=== PATIENT | female | born 1945 | race Caucasian/White ===

== ENCOUNTER 2021-09-10 20:04 | Observation (INO) | payer MEDICARE, OTHER ==
[2021-09-10] MEDS ORDERED: Sodium Chloride 0.9% 10 ML Syringe FLUSH PRN (20:26)
[2021-09-10] MEDS ORDERED: Sodium Chloride 0.9% 1,000 ML IV SCH (20:30)
[2021-09-10] MEDS ORDERED: LORazepam 0.5 MG Tab PO ONE (20:51)
[2021-09-10 21:38] LABS: CHLORIDE,CL 102 mmol/L (98-107); SODIUM,NA 139 mmol/L (136-145)
[2021-09-10 21:39] LABS: ANION GAP 25.6 mmol/L (5-15)
[2021-09-10 21:41] LABS: PTT,PARTIAL THROMBOPLSTIN TIME 27.1 SEC (25.6-32.8)
--- NOTE | 2021-09-10 23:13 | EDM.PDOC ---
ED HPI GENERAL MEDICAL PROBLEM - General Stated Complaint: LIGHTHEADED;BP LOW Time Seen by Provider: 09/10/21 20:04 Source of Information: Reports: Patient, EMS History Limitations: Reports: No Limitations - History of Present Illness INITIAL COMMENTS - FREE TEXT/NARRATIVE: Pt. had a near syncopal episode this evening. She live in [place] and is in [place] for her brother's . She states that she became diaphoretic, lightheaded and felt faint. She was helped to the floor, and EMS was summoned. Pt. has a history of type 2 DM. EMS checked her blood sugar and it was normal. Pt. was hypotensive initially, with BP in the 50s and then 70s systolic. She was normotensive by the time she arrived in ER. Pt. denies any numbness/tingling in extremities, no problems with speech, headache, facial droop. No history of previous stroke. She denies any chest pain, shortness of breath, nausea, or vomiting. She states that she does feel a bit lightheaded when she stands. Her only other complaint is of anxiety, which she states she has chronic problems with. Pt. has a history of concentric ventricular hypertrophy, microvascular CAD, moderate diastolic heart failure, tricuspid and mitral regurgitation. EF on echo in 2019 was 55-60%. Onset: Today Location: Reports: Chest, Generalized - Related Data Allergies Allergy/AdvReac Type Severity Reaction Status Date / Time codeine Allergy Other Verified 09/10/21 20:24 Penicillins Allergy Other Verified 09/10/21 20:25 Home Meds: Home Meds . [Unable to Verify Home Med List] 09/10/21 [History] Past Medical History Cardiovascular History: Reports: Heart Failure, Hypertension, Other (See Below) Other Cardiovascular History: Mitral valve annular calcification, subcortical microvascular ischemic occlusive disease Respiratory History: Reports: Other (See Below) Other Respiratory History: Allergic rhinitis Gastrointestinal History: Reports: GERD, Other (See Below) Other Gastrointestinal History: Gastric ulcer, B12 deficiency Genitourinary History: Reports: Other (See Below) Other Genitourinary History: Stage 3a chronic kidney disease Musculoskeletal History: Reports: Arthritis, Osteoporosis, Other (See Below) Other Musculoskeletal History: Osteopenia, acquired torticollis, disc disease, degenerative lumbar disease Neurological History: Reports: Other (See Below) Other Neuro History: Syncopal episodes, benign head tremor Psychiatric History: Reports: Anxiety, Depression Endocrine/Metabolic History: Reports: Diabetes, Type II, Hypothyroidism, Other (See Below) Other Endocrine/Metabolic History: Dyslipidemia Hematologic History: Reports: Other (See Below) Other Hematologic History: Iron deficiency anemia Oncologic (Cancer) History: Reports: Breast - Past Surgical History HEENT Surgical History: Reports: None Cardiovascular Surgical History: Reports: None Respiratory Surgical History: Reports: None GI Surgical History: Reports: Other (See Below) Other GI Surgeries/Procedures: Hx of gastric bypass Female Surgical History: Reports: Other (See Below) Other Female Surgeries/Procedures: Fibrocystic breast, malignant neoplasm of female breast, hx of breast cancer ED ROS GENERAL - Review of Systems Review Of Systems: See Below Constitutional: Reports: No Symptoms HEENT: Reports: No Symptoms Respiratory: Reports: No Symptoms Cardiovascular: Reports: No Symptoms Endocrine: Reports: No Symptoms GI/Abdominal: Reports: No Symptoms : Reports: No Symptoms Musculoskeletal: Reports: No Symptoms Skin: Reports: No Symptoms Neurological: Reports: No Symptoms Psychiatric: Reports: No Symptoms Hematologic/Lymphatic: Reports: No Symptoms Immunologic: Reports: No Symptoms ED EXAM, GENERAL - Physical Exam Exam: See Below General Appearance: Alert, WD/WN, Anxious, Mild Distress Throat/Mouth: Normal Inspection, Normal Lips, Normal Oropharynx, Normal Voice Head: Atraumatic, Normocephalic Neck: Normal Inspection, Supple, Non-Tender, Full Range of Motion Respiratory/Chest: No Respiratory Distress, Lungs Clear, Normal Breath Sounds, No Accessory Muscle Use, Chest Non-Tender Cardiovascular: Normal Peripheral Pulses, Regular Rate, Rhythm, No Edema, No JVD, No Murmur, No Rub Peripheral Pulses: 4+: Radial (R) GI/Abdominal: Soft, Non-Tender, No Distention, No Mass Extremities: Normal Inspection, Normal Range of Motion, No Pedal Edema, Normal Capillary Refill Neurological: Alert, Oriented, CN II-XII Intact, Normal Cognition, Normal Reflexes, No Motor/Sensory Deficits Psychiatric: Normal Affect, Normal Mood #1 Interpretation Rhythm: NSR [place]: Normal P-Wave: Present QRS: Normal ST-T: Normal QT: Normal Course - Orders/Labs/Meds Orders: Active Orders 24 hr Category Date Time Status EKG Documentation Completion [RC] STAT Care 09/10/21 20:26 Active Chest 1V Frontal [CR] Stat Exams 09/10/21 20:33 Ordered Sodium Chloride 0.9% [Normal Saline] 1,000 ml Med 09/10/21 20:30 Active IV ASDIRECTED Sodium Chloride 0.9% [Saline Flush] Med 09/10/21 20:26 Active 10 ml FLUSH ASDIRECTED PRN Peripheral IV Insertion Adult [OM.PC] Routine Oth 09/10/21 20:26 Ordered Medication Orders Sodium Chloride (Normal Saline) 1,000 mls @ 500 mls/hr IV ASDIRECTED BUTCH Sodium Chloride (Sodium Chloride 0.9% 10 Ml Syringe) 10 ml FLUSH ASDIRECTED PRN PRN Reason: Keep Vein Open Labs: Laboratory Tests 09/10/21 09/10/21 09/10/21 Range/Units 21:00 21:02 21:02 WBC 11.2 H (4.0-10.0) x10^3/uL RBC 3.28 L (4.00-5.50) x10^6/uL Hgb 9.9 L (12.0-16.0) g/dL Hct 29.9 L (33.0-47.0) % MCV 91.2 (78.0-93.0) fL MCH 30.2 (26.0-32.0) pg MCHC 33.1 (32.0-36.0) g/dL RDW Coeff of Chasity 14.0 (10.0-15.0) % Plt Count 319 (130-400) x10^3/uL Immature Gran % (Auto) 0.30 (0.00-0.43) % Neut % (Auto) 80.2 H (50.0-80.0) % Lymph % (Auto) 11.2 L (25.0-50.0) % [place] % (Auto) 6.2 (2.0-11.0) % Eos % (Auto) 1.7 (0.0-4.0) % Baso % (Auto) 0.4 (0.2-1.2) % Neut # (Auto) 9.0 H (1.8-7.7) x10^3/uL Lymph # (Auto) 1.3 (1.0-4.8) x10^3/uL [place] # (Auto) 0.7 (0.0-0.8) x10^3/uL Eos # (Auto) 0.2 (0.0-0.5) x10^3/uL Baso # (Auto) 0.1 (0.0-0.2) x10^3/uL Immature Gran # (Auto) 0.03 (0.00-0.07) x10^3/uL PT 9.9 (9.9-12.5) SEC INR 0.9 L (2.0-3.5) APTT 27.1 (25.6-32.8) SEC D-Dimer, Quantitative 0.48 (<=0.58) mg/LFEU Sodium (136-145) mmol/L Potassium (3.5-5.1) mmol/L Chloride (98-107) mmol/L Carbon Dioxide (21-32) mmol/L Anion Gap (5-15) mmol/L BUN (7-18) mg/dL Creatinine (0.55-1.02) mg/dL Est Cr Clr Drug Dosing Estimated GFR (MDRD) Glucose (70-99) mg/dL Calcium (8.5-10.1) mg/dL Corrected Calcium (8.5-10.1) mg/dL Phosphorus (2.6-4.7) mg/dL Magnesium (1.8-2.4) mg/dL Total Bilirubin (0.2-1.0) mg/dL AST (15-37) U/L ALT (14-59) U/L Alkaline Phosphatase (46-116) U/L Troponin I High Sens (<=51) ng/L C-Reactive Protein (<=0.9) mg/dL NT-Pro-B Natriuret Pep (<=450) pg/mL Total Protein (6.4-8.2) g/dL Albumin (3.4-5.0) g/dL Globulin Albumin/Globulin Ratio TSH, Ultra Sensitive (0.358-3.74) uIU/mL Urine Color (YELLOW) Urine Appearance (CLEAR) Urine pH (5.0-8.0) Ur Specific [place] Urine Protein (NEGATIVE) mg/dL Urine Glucose (UA) (NEGATIVE) mg/dL Urine Ketones (NEGATIVE) mg/dL Urine Occult Blood (NEGATIVE) Urine Nitrite (NEGATIVE) Urine Bilirubin (NEGATIVE) Urine Urobilinogen (0.2) EU/dL Ur Leukocyte Esterase (NEGATIVE) Ethyl Alcohol (0-3) mg/dL SARS CoV-2 RNA Rapid FRANKLYN Negative (NEGATIVE) 09/10/21 09/10/21 Range/Units 21:02 21:10 WBC (4.0-10.0) x10^3/uL RBC (4.00-5.50) x10^6/uL Hgb (12.0-16.0) g/dL Hct (33.0-47.0) % MCV (78.0-93.0) fL MCH (26.0-32.0) pg MCHC (32.0-36.0) g/dL RDW Coeff of Chasity (10.0-15.0) % Plt Count (130-400) x10^3/uL Immature Gran % (Auto) (0.00-0.43) % Neut % (Auto) (50.0-80.0) % Lymph % (Auto) (25.0-50.0) % [place] % (Auto) (2.0-11.0) % Eos % (Auto) (0.0-4.0) % Baso % (Auto) (0.2-1.2) % Neut # (Auto) (1.8-7.7) x10^3/uL Lymph # (Auto) (1.0-4.8) x10^3/uL [place] # (Auto) (0.0-0.8) x10^3/uL Eos # (Auto) (0.0-0.5) x10^3/uL Baso # (Auto) (0.0-0.2) x10^3/uL Immature Gran # (Auto) (0.00-0.07) x10^3/uL PT (9.9-12.5) SEC INR (2.0-3.5) APTT (25.6-32.8) SEC D-Dimer, Quantitative (<=0.58) mg/LFEU Sodium 139 (136-145) mmol/L Potassium 3.6 (3.5-5.1) mmol/L Chloride 102 (98-107) mmol/L Carbon Dioxide 15 L (21-32) mmol/L Anion Gap 25.6 H (5-15) mmol/L BUN 15 (7-18) mg/dL Creatinine 1.1 H (0.55-1.02) mg/dL Est Cr Clr Drug Dosing TNP Estimated GFR (MDRD) 48 Glucose 79 (70-99) mg/dL Calcium 8.1 L (8.5-10.1) mg/dL Corrected Calcium 8.3 L (8.5-10.1) mg/dL Phosphorus 3.3 (2.6-4.7) mg/dL Magnesium 1.9 (1.8-2.4) mg/dL Total Bilirubin 0.2 (0.2-1.0) mg/dL AST 17 (15-37) U/L ALT 23 (14-59) U/L Alkaline Phosphatase 56 (46-116) U/L Troponin I High Sens 19 (<=51) ng/L C-Reactive Protein < 0.2 (<=0.9) mg/dL NT-Pro-B Natriuret Pep 3601 H (<=450) pg/mL Total Protein 6.6 (6.4-8.2) g/dL Albumin 3.7 (3.4-5.0) g/dL Globulin 2.9 Albumin/Globulin Ratio 1.28 TSH, Ultra Sensitive 3.639 (0.358-3.74) uIU/mL Urine Color Yellow (YELLOW) Urine Appearance Clear (CLEAR) Urine pH 5.5 (5.0-8.0) Ur Specific [place] 1.010 Urine Protein Negative (NEGATIVE) mg/dL Urine Glucose (UA) Negative (NEGATIVE) mg/dL Urine Ketones Trace H (NEGATIVE) mg/dL Urine Occult Blood Negative (NEGATIVE) Urine Nitrite Negative (NEGATIVE) Urine Bilirubin Negative (NEGATIVE) Urine Urobilinogen 0.2 (0.2) EU/dL Ur Leukocyte Esterase Negative (NEGATIVE) Ethyl Alcohol 13 H (0-3) mg/dL SARS CoV-2 RNA Rapid FRANKLYN (NEGATIVE) Meds: Medications Generic Name Dose Route Start Last Admin Trade Name Freq PRN Reason Stop Dose Admin Sodium Chloride 1,000 mls @ 500 mls/hr 09/10/21 20:30 Normal Saline IV ASDIRECTED BUTCH Sodium Chloride 10 ml 09/10/21 20:26 Sodium Chloride 0.9% 10 Ml Syringe FLUSH ASDIRECTED PRN Keep Vein Open Discontinued Medications Generic Name Dose Route Start Last Admin Trade Name Freq PRN Reason Stop Dose Admin Lorazepam 0.5 mg 09/10/21 20:51 09/10/21 21:29 Lorazepam 0.5 Mg Tab PO 09/10/21 20:52 0.5 mg ONETIME ONE Administration - Radiology Interpretation Free Text/Narrative:: mild CHF Departure - Departure Time of Disposition: 22:00 Disposition: Refer to Observation Clinical Impression: CHF (congestive heart failure), Near syncope - Discharge Information - Problem List Review Problem List Initiated/Reviewed/Updated: Yes - My Orders Last 24 Hours: My Active Orders 09/10/21 20:26 EKG Documentation Completion [RC] STAT Sodium Chloride 0.9% [Saline Flush] 10 ml FLUSH ASDIRECTED PRN Peripheral IV Insertion Adult [OM.PC] Routine 09/10/21 20:30 Sodium Chloride 0.9% [Normal Saline] 1,000 ml IV ASDIRECTED 09/10/21 20:33 Chest 1V Frontal [CR] Stat - Assessment/Plan Last 24 Hours: My Active Orders 09/10/21 20:26 EKG Documentation Completion [RC] STAT Sodium Chloride 0.9% [Saline Flush] 10 ml FLUSH ASDIRECTED PRN Peripheral IV Insertion Adult [OM.PC] Routine 09/10/21 20:30 Sodium Chloride 0.9% [Normal Saline] 1,000 ml IV ASDIRECTED 09/10/21 20:33 Chest 1V Frontal [CR] Stat Plan: Pt. will be admitted observation. I do not find a recent cardiology note in the patient's chart. She denied any chest pain or shortness of breath during her stay in ER. Will trend troponin. Initial EKG was negative for acute ischemic dharmesh nges. Pt. is a code 1. Discussed finding with patient's niece. She will see to it that her is cared for, as patient is his primary carer.
[2021-09-11] MEDS ORDERED: Citalopram 20 MG Tab PO SCH (10:00)
[2021-09-11] MEDS ORDERED: metFORMIN 500 MG Tab PO SCH (10:15)
[2021-09-11] MEDS ORDERED: Levothyroxine 50 MCG Tab PO SCH (10:15)
[2021-09-11] MEDS: Gabapentin 400 MG Cap PO SCH ×2 (10:17→14:49)
[2021-09-11] MEDS ORDERED: Acetaminophen 325 MG Tab PO PRN (10:39)
--- NOTE | 2021-09-11 14:19 | PCM.DCSUM1 ---
Discharge Summary - Hospital Course Free Text/Narrative:: Patient was placed in observation overnight secondary to her near syncopal episode. She had trending troponins which were negative. At time of discharge patient was alert and oriented x4 sitting up in bed watching TV and states she has no complaints at this time wants to her and get home for the [employer] game. She states she ate breakfast and had dinner today with no issues she has been up walking to the bathroom multiple times with no issues. She has no other complaints at this time her and her are okay with treatment disposition home Brief History: Patient was placed in observation for near syncopal episode Diagnosis: Stroke: No Modified Oracio Scale: No Symptoms at All Modified Oracio Scale Score: 0 - Discharge Data Discharge Date: 09/11/21 Discharge Disposition: Home, Self-Care 01 Preliminary Cause of *Q: Other_Special Instruction (no ) Event(s) Leading to Patient's *Q: no Condition: Stable - Referral to Home Health Primary Care Physician: PCP Not In Area - Patient Instructions Diet: Heart Healthy Diet Diet, Other: I recommend a low-salt diet limit fluids to 1500 mL a day Feeding Instructions: Normal diet as tolerated Driving: May Drive Today Showering/Bathing: May Shower - Discharge Plan *PRESCRIPTION DRUG MONITORING PROGRAM REVIEWED*: No *COPY OF PRESCRIPTION DRUG MONITORING REPORT IN PATIENT [place]: No Home Medications: Home Meds Citalopram [Citalopram HBr] 10 mg PO BEDTIME 09/11/21 [History] Citalopram [Citalopram HBr] 20 mg PO DAILY 09/11/21 [History] Famotidine [Pepcid] 20 mg PO BEDTIME 09/11/21 [History] Fluticasone Propionate [Flonase] 1 spray NASBOTH DAILY 09/11/21 [History] Gabapentin [Neurontin] 400 mg PO QID 09/11/21 [History] Levothyroxine [Synthroid] 50 mcg PO DAILY 09/11/21 [History] Simvastatin [Zocor] 20 mg PO BEDTIME 09/11/21 [History] metFORMIN HCl [Metformin HCl] 1,000 mg PO BIDMEALS 09/11/21 [History] Patient Handouts: Near-Syncope, Heart Failure, Diagnosis, [id number] Forms: ED Department Discharge Referrals: PCP,Not In Area [Primary Care Provider] - - Discharge Summary/Plan Comment DC Time >30 min.: No Total # of Minutes for Discharge Time: 20 mins - General Info Date of Service: 09/11/21 Functional Status: Reports: Tolerating Diet, Ambulating, Urinating - Review of Systems General: Reports: No Symptoms HEENT: Reports: No Symptoms Pulmonary: Reports: No Symptoms Cardiovascular: Reports: No Symptoms Gastrointestinal: Reports: No Symptoms Genitourinary: Reports: No Symptoms Musculoskeletal: Reports: No Symptoms Skin: Reports: No Symptoms Neurological: Reports: No Symptoms. Denies: Confusion, Dizziness, Headache, Numbness, Paresthesia, Pre-Existing Deficit, Syncope, Tingling, Tremors, Trouble Speaking, Difficulty Walking, Weakness Psychiatric: Reports: No Symptoms - Patient Data Vitals - Most Recent: Last Vital Signs Temp 36.7 C 09/11/21 10:00 Pulse 61 09/11/21 10:00 Resp 20 09/11/21 10:00 BP 144/89 H 09/11/21 10:00 Pulse Ox 100 09/11/21 10:00 Weight - Most Recent: 68.674 kg I&O - Last 24 hours: Intake & Output 09/10/21 09/11/21 09/11/21 22:59 06:59 14:59 Intake Total 1000 425 270 Balance 1000 425 270 Lab Results - Last 24 hrs: Laboratory Results - last 24 hr 09/10/21 09/10/21 09/10/21 Range/Units 21:00 21:02 21:02 WBC 11.2 H (4.0-10.0) x10^3/uL RBC 3.28 L (4.00-5.50) x10^6/uL Hgb 9.9 L (12.0-16.0) g/dL Hct 29.9 L (33.0-47.0) % MCV 91.2 (78.0-93.0) fL MCH 30.2 (26.0-32.0) pg MCHC 33.1 (32.0-36.0) g/dL RDW Coeff of Chasity 14.0 (10.0-15.0) % Plt Count 319 (130-400) x10^3/uL Immature Gran % (Auto) 0.30 (0.00-0.43) % Neut % (Auto) 80.2 H (50.0-80.0) % Lymph % (Auto) 11.2 L (25.0-50.0) % [place] % (Auto) 6.2 (2.0-11.0) % Eos % (Auto) 1.7 (0.0-4.0) % Baso % (Auto) 0.4 (0.2-1.2) % Neut # (Auto) 9.0 H (1.8-7.7) x10^3/uL Lymph # (Auto) 1.3 (1.0-4.8) x10^3/uL [place] # (Auto) 0.7 (0.0-0.8) x10^3/uL Eos # (Auto) 0.2 (0.0-0.5) x10^3/uL Baso # (Auto) 0.1 (0.0-0.2) x10^3/uL Immature Gran # (Auto) 0.03 (0.00-0.07) x10^3/uL PT 9.9 (9.9-12.5) SEC INR 0.9 L (2.0-3.5) APTT 27.1 (25.6-32.8) SEC D-Dimer, Quantitative 0.48 (<=0.58) mg/LFEU Sodium (136-145) mmol/L Potassium (3.5-5.1) mmol/L Chloride (98-107) mmol/L Carbon Dioxide (21-32) mmol/L Anion Gap (5-15) mmol/L BUN (7-18) mg/dL Creatinine (0.55-1.02) mg/dL Est Cr Clr Drug Dosing Estimated GFR (MDRD) Glucose (70-99) mg/dL Calcium (8.5-10.1) mg/dL Corrected Calcium (8.5-10.1) mg/dL Phosphorus (2.6-4.7) mg/dL Magnesium (1.8-2.4) mg/dL Total Bilirubin (0.2-1.0) mg/dL AST (15-37) U/L ALT (14-59) U/L Alkaline Phosphatase (46-116) U/L Troponin I High Sens (<=51) ng/L C-Reactive Protein (<=0.9) mg/dL NT-Pro-B Natriuret Pep (<=450) pg/mL Total Protein (6.4-8.2) g/dL Albumin (3.4-5.0) g/dL Globulin Albumin/Globulin Ratio TSH, Ultra Sensitive (0.358-3.74) uIU/mL Urine Color (YELLOW) Urine Appearance (CLEAR) Urine pH (5.0-8.0) Ur Specific [place] Urine Protein (NEGATIVE) mg/dL Urine Glucose (UA) (NEGATIVE) mg/dL Urine Ketones (NEGATIVE) mg/dL Urine Occult Blood (NEGATIVE) Urine Nitrite (NEGATIVE) Urine Bilirubin (NEGATIVE) Urine Urobilinogen (0.2) EU/dL Ur Leukocyte Esterase (NEGATIVE) Ethyl Alcohol (0-3) mg/dL SARS CoV-2 RNA Rapid FRANKLYN Negative (NEGATIVE) 09/10/21 09/10/21 09/11/21 Range/Units 21:02 21:10 08:17 WBC (4.0-10.0) x10^3/uL RBC (4.00-5.50) x10^6/uL Hgb (12.0-16.0) g/dL Hct (33.0-47.0) % MCV (78.0-93.0) fL MCH (26.0-32.0) pg MCHC (32.0-36.0) g/dL RDW Coeff of Chasity (10.0-15.0) % Plt Count (130-400) x10^3/uL Immature Gran % (Auto) (0.00-0.43) % Neut % (Auto) (50.0-80.0) % Lymph % (Auto) (25.0-50.0) % [place] % (Auto) (2.0-11.0) % Eos % (Auto) (0.0-4.0) % Baso % (Auto) (0.2-1.2) % Neut # (Auto) (1.8-7.7) x10^3/uL Lymph # (Auto) (1.0-4.8) x10^3/uL [place] # (Auto) (0.0-0.8) x10^3/uL Eos # (Auto) (0.0-0.5) x10^3/uL Baso # (Auto) (0.0-0.2) x10^3/uL Immature Gran # (Auto) (0.00-0.07) x10^3/uL PT (9.9-12.5) SEC INR (2.0-3.5) APTT (25.6-32.8) SEC D-Dimer, Quantitative (<=0.58) mg/LFEU Sodium 139 (136-145) mmol/L Potassium 3.6 (3.5-5.1) mmol/L Chloride 102 (98-107) mmol/L Carbon Dioxide 15 L (21-32) mmol/L Anion Gap 25.6 H (5-15) mmol/L BUN 15 (7-18) mg/dL Creatinine 1.1 H (0.55-1.02) mg/dL Est Cr Clr Drug Dosing TNP Estimated GFR (MDRD) 48 Glucose 79 (70-99) mg/dL Calcium 8.1 L (8.5-10.1) mg/dL Corrected Calcium 8.3 L (8.5-10.1) mg/dL Phosphorus 3.3 (2.6-4.7) mg/dL Magnesium 1.9 (1.8-2.4) mg/dL Total Bilirubin 0.2 (0.2-1.0) mg/dL AST 17 (15-37) U/L ALT 23 (14-59) U/L Alkaline Phosphatase 56 (46-116) U/L Troponin I High Sens 19 20 (<=51) ng/L C-Reactive Protein < 0.2 (<=0.9) mg/dL NT-Pro-B Natriuret Pep 3601 H (<=450) pg/mL Total Protein 6.6 (6.4-8.2) g/dL Albumin 3.7 (3.4-5.0) g/dL Globulin 2.9 Albumin/Globulin Ratio 1.28 TSH, Ultra Sensitive 3.639 (0.358-3.74) uIU/mL Urine Color Yellow (YELLOW) Urine Appearance Clear (CLEAR) Urine pH 5.5 (5.0-8.0) Ur Specific [place] 1.010 Urine Protein Negative (NEGATIVE) mg/dL Urine Glucose (UA) Negative (NEGATIVE) mg/dL Urine Ketones Trace H (NEGATIVE) mg/dL Urine Occult Blood Negative (NEGATIVE) Urine Nitrite Negative (NEGATIVE) Urine Bilirubin Negative (NEGATIVE) Urine Urobilinogen 0.2 (0.2) EU/dL Ur Leukocyte Esterase Negative (NEGATIVE) Ethyl Alcohol 13 H (0-3) mg/dL SARS CoV-2 RNA Rapid FRANKLYN (NEGATIVE) Med Orders - Current: Current Medications Acetaminophen (Acetaminophen 325 Mg Tab) 650 mg PO Q6H PRN PRN Reason: Pain Last Admin: 09/11/21 12:07 Dose: 650 mg Documented by: Citalopram Hydrobromide (Citalopram 20 Mg Tab) 20 mg PO DAILY [facility] Last Admin: 09/11/21 10:17 Dose: 20 mg Documented by: Citalopram Hydrobromide (Citalopram 10 Mg Tab) 10 mg PO BEDTIME BUTCH Famotidine (Famotidine 20 Mg Tab) 20 mg PO BEDTIME BUTCH Gabapentin (Gabapentin 400 Mg Cap) 400 mg PO QID [facility] Last Admin: 09/11/21 10:17 Dose: 400 mg Documented by: Levothyroxine Sodium (Levothyroxine 50 Mcg Tab) 50 mcg PO ACBREAKFAST [facility] Last Admin: 09/11/21 10:18 Dose: 50 mcg Documented by: Metformin HCl (Metformin 500 Mg Tab) 1,000 mg PO BIDMEALS [facility] Last Admin: 09/11/21 10:19 Dose: 1,000 mg Documented by: Non-Formulary Medication (Fluticasone Propionate [Flonase]) 1 spray NASBOTH DAILY [facility] Simvastatin (Simvastatin 20 Mg Tab) 20 mg PO BEDTIME [facility] Sodium Chloride (Sodium Chloride 0.9% 10 Ml Syringe) 10 ml FLUSH ASDIRECTED PRN PRN Reason: Keep Vein Open Last Admin: 09/11/21 10:19 Dose: 10 ml Documented by: Discontinued Medications Sodium Chloride (Normal Saline) 1,000 mls @ 500 mls/hr IV ASDIRECTED [facility] Last Admin: 09/10/21 23:51 Dose: 500 mls/hr Documented by: Lorazepam (Lorazepam 0.5 Mg Tab) 0.5 mg PO ONETIME ONE Stop: 09/10/21 20:52 Last Admin: 09/10/21 21:29 Dose: 0.5 mg Documented by: - Exam General: Reports: Alert, Oriented HEENT: Reports: Pupils Equal, Pupils Reactive, EOMI, Mucous Membr. Moist/[place] Neck: Reports: Supple Lungs: Reports: Clear to Auscultation, Normal Respiratory Effort Cardiovascular: Reports: Regular Rate, Regular Rhythm GI/Abdominal Exam: Normal Bowel Sounds, Soft, Non-Tender, No Organomegaly, No Distention Extremities: Normal Inspection, Normal Range of Motion, Non-Tender, No Pedal Edema, Normal Capillary Refill, Other (Patient has equal front end engineer bilateral 5 of 5 strength upper and lower extremity bilateral) Skin: Reports: Warm, Dry, Intact, Other (She does have small abrasion to the left side of the lateral paraspinal area she states she has been itching there the last couple days and may have scratched herself there is no signs or symptoms of any secondary infection) Neurological: Reports: No New Focal Deficit Psy/Mental Status: Reports: Alert, Normal Affect, Normal Mood *Q Meaningful Use (DIS) - VTE *Q VTE Mechanical Contraindications *Q: Tx/Proc Refused byPt (Patient has no risk factors) VTE Pharmacological Contraindications *Q: Tx/Proc Refused by Pt (Patient has no risk factors nor symptoms of DVT or strokelike symptoms) - Stroke *Q Stroke Criteria *Q: Patient has no DVT or stroke risk symptoms - AMI *Q AMI Criteria *Q: Patient had no chest pain on admission none through the night and none this morning troponins have trended normal
[2021-09-11] MEDS ORDERED: Famotidine 20 MG Tab PO SCH (20:00)
[2021-09-11] MEDS ORDERED: Citalopram 10 MG Tab PO SCH (20:00)
[2021-09-11] MEDS ORDERED: Simvastatin 20 MG Tab PO SCH (20:00)
[2021-09-12] MEDS ORDERED: Non-Formulary Medication 1 Each (Fluticasone Propionate [Flonase] 16 GM Bottle) NASBOTH SCH (08:00)
--- NOTE | 2021-09-12 13:53 | CR ---
[id number] RAD/RAD Chest PA or AP 1V EXAM: SINGLE VIEW CHEST. INDICATION: SYNCOPE COMPARISON: NO PREVIOUS SIMILAR EXAM IS AVAILABLE FINDINGS: There appears to be mild edema The cardiac silhouette is enlarged The aorta is tortuous There are old right rib fractures IMPRESSION: MILD CONGESTIVE HEART FAILURE Sina Hinojosa MD 09/12/21 [id number] Thank you for allowing us to participate in the care of your patient.
== END 2021-09-11 14:40 | disposition home or self-care (01) ==
LOC: VM.ED 20:04 → VM.MS 21:51
PROVIDERS: ADMIT Physician Assistant; ATTEND Physician Assistant
DX: R55 Syncope and collapse (principal); I25.10 Atherosclerotic heart disease of native coronary artery without angina pectoris; I50.30 Unspecified diastolic (congestive) heart failure; I13.0 Hypertensive heart and chronic kidney disease with heart failure and stage 1 through stage 4 chronic kidney disease, or unspecified chronic kidney disease; E11.22 Type 2 diabetes mellitus with diabetic chronic kidney disease; N18.31 Chronic kidney disease, stage 3a; E03.9 Hypothyroidism, unspecified; Z98.890 Other specified postprocedural states; Z88.5 Allergy status to narcotic agent; Z88.0 Allergy status to penicillin; Z20.822 Contact with and (suspected) exposure to COVID-19
CPT/HCPCS: 36415; 71045; 80053; 80307; 81003; 83735; 83880; 84100; 84443; 84484; 85025; 85379; 85610; 85730; 86140; 93005; 93010; 99217; 99220; 99285-25; A9270-GY; G0378; J7030; U0002